=== PATIENT | male | born 1965 | race African-American/Black ===

== ENCOUNTER 2022-07-31 21:38 | Emergency (ER) | payer OTHER ==
[2022-07-31 22:44] LABS: Mean Corpuscular HGB CONC 34.5 g/dL (32.0-36.0); Mean Corpuscular Hemoglobin 29.2 pg (27.0-33.0); Mean Corpuscular Volume 84.8 fl (81.2-95.1); Mean Platelet Volume 9.4 fl (7.4-10.4); Platelet Count 133 10x3/uL (150-450); RBC Distribution Width 12.6 % (11.5-14.5); Red Blood Cell (RBC) Count 4.79 10x6/uL (4.32-5.72); White Blood Cell (WBC) Count 5.5 10x3/uL (3.5-10.5)
[2022-07-31 22:45] LABS: #Eosinphils 0.1 10x3/uL (0.0-0.5); #Monocytes 0.5 10x3/uL (0.0-1.1); #Neutrophils 3.5 10x3/uL (1.5-8.4); %Basophils 0.5 % (0.0-2.0); %Eosinophils 1.1 % (0.0-6.0); %Lymphocytes 27.3 % (18.0-47.0); %Monocytes 8.5 % (0.0-10.0); %Neutrophils 62.2 % (40.0-75.0)
[2022-07-31 22:58] LABS: ALT (SGPT) 28 U/L (8-55); AST (SGOT) 25 U/L (5-34); Albumin 3.8 g/dL (3.5-5.0); Alkaline Phosphatase 81 U/L (40-110); Anion Gap 11 mmol/L (10-20); BUN (Urea Nitrogen) 12 mg/dL (8.4-25.7); Bilirubin, Total 0.4 mg/dL (0.2-1.2); Calc. Creatinine Clearance 0 mL/min (70-130); Calcium 8.7 mg/dL (7.8-10.44); Carbon Dioxide 23 mmol/L (22-29); Chloride 111 mmol/L (98-107); Estimated GFR 103; Globulin 2.7 g/dL (2.4-3.5); Glucose 102 mg/dL (70-105); Potassium 4.3 mmol/L (3.5-5.1); Protein, Total 6.5 g/dL (6.0-8.3); Sodium 141 mmol/L (136-145)
[2022-07-31 23:58] LABS: SARS-CoV-2 NAA Rapid Test Not Detected (NotDetected)
== END 2022-08-01 02:27 | disposition short-term general hospital (02) ==
LOC: CSHERS 21:38
DX: R07.89 Other chest pain (principal); R00.2 Palpitations; I48.91 Unspecified atrial fibrillation; I25.10 Atherosclerotic heart disease of native coronary artery without angina pectoris; E78.5 Hyperlipidemia, unspecified; I10 Essential (primary) hypertension; Z20.822 Contact with and (suspected) exposure to COVID-19; Z79.899 Other long term (current) drug therapy
CPT/HCPCS: 71045; 80053; 84484; 85025; 85379; 93005; U0002

== ENCOUNTER 2022-11-02 18:49 | Observation (INO) | payer OTHER ==
[2022-11-02 19:04] VITALS: BMI 28.9
[2022-11-02] MEDS ORDERED: Calcium Carbonate 500 MG ChewTAB PO PRN (19:25)
[2022-11-02] MEDS ORDERED: HYDROcodone/Acetaminophen 5/325 mg Tablet PO PRN (19:25)
[2022-11-02] MEDS ORDERED: Ondansetron PF 4 MG/2 ML Vial IVP PRN (19:25)
[2022-11-02] MEDS ORDERED: Acetaminophen 325 MG TAB PO PRN (19:25)
[2022-11-02] MEDS ORDERED: Guaifenesin DM 100-10/5 ML UDCUP PO PRN (19:25)
[2022-11-02] MEDS ORDERED: Senokot S 8.6-50 MG TAB PO PRN (19:25)
[2022-11-02] MEDS ORDERED: Lactated Ringer's 500 ML IV SCH (19:30)
[2022-11-02] MEDS ORDERED: Potassium Chloride 20 MEQ TAB PO SCH ×2 (19:30→22:00)
[2022-11-02] MEDS ORDERED: Magnesium Sulfate/D5W 1 GM/100 ML BAG IVPB SCH (19:30)
[2022-11-02] MEDS ORDERED: Morphine 2 MG/ML VIAL SLOW IVP PRN (19:37)
[2022-11-02] MEDS: Metoprolol Tartrate 50 MG TAB PO SCH (22:27)
[2022-11-02] MEDS: Simvastatin 10 MG TAB PO SCH (22:27)
[2022-11-02] MEDS: Terazosin HCl 5 MG CAP PO SCH (22:27)
[2022-11-03] MEDS ORDERED: Potassium Chloride 20 MEQ TAB PO SCH (01:00)
[2022-11-03 05:14] LABS: Anion Gap 11 mmol/L (10-20); BUN (Urea Nitrogen) 15 mg/dL (8.4-25.7); Calc. Creatinine Clearance 128 mL/min (70-130); Calcium 8.5 mg/dL (7.8-10.44); Carbon Dioxide 24 mmol/L (22-29); Chloride 110 mmol/L (98-107); Estimated GFR 104; Glucose 102 mg/dL (70-105); Magnesium 2.1 mg/dL (1.6-2.6); Potassium 4.7 mmol/L (3.5-5.1); Sodium 140 mmol/L (136-145)
[2022-11-03] MEDS: Metoprolol Tartrate 50 MG TAB PO SCH ×2 (09:23→20:43)
[2022-11-03] MEDS: Aspirin 81 mg Enteric Coated Tablet PO SCH (09:23)
[2022-11-03] MEDS: Terazosin HCl 5 MG CAP PO SCH (20:43)
[2022-11-03] MEDS: Simvastatin 10 MG TAB PO SCH (20:43)
[2022-11-04 04:08] LABS: Anion Gap 10 mmol/L (10-20); BUN (Urea Nitrogen) 12 mg/dL (8.4-25.7); Calc. Creatinine Clearance 128 mL/min (70-130); Calcium 8.8 mg/dL (7.8-10.44); Carbon Dioxide 25 mmol/L (22-29); Chloride 105 mmol/L (98-107); Estimated GFR 104; Glucose 107 mg/dL (70-105); Potassium 4.2 mmol/L (3.5-5.1); Sodium 136 mmol/L (136-145)
[2022-11-04] MEDS: Metoprolol Tartrate 50 MG TAB PO SCH (09:31)
[2022-11-04] MEDS: Aspirin 81 mg Enteric Coated Tablet PO SCH (09:32)
[2022-11-04 17:04] VITALS: BP 109/77; TEMP 98.1
== END 2022-11-04 19:20 | disposition home or self-care (01) ==
LOC: INTOOBSV 18:49 → CSHTELE 18:49 → EEVIPCON 18:49 → OBSVTOIN 19:25 → INTOOBSV 19:25
PROVIDERS: ADMIT Internal Medicine; ATTEND Internal Medicine
DX: R00.2 Palpitations (principal); R07.9 Chest pain, unspecified; R06.02 Shortness of breath; R42 Dizziness and giddiness; G47.33 Obstructive sleep apnea (adult) (pediatric); I47.1 Supraventricular tachycardia; I48.91 Unspecified atrial fibrillation; N40.0 Benign prostatic hyperplasia without lower urinary tract symptoms; K21.9 Gastro-esophageal reflux disease without esophagitis; I48.92 Unspecified atrial flutter; E78.5 Hyperlipidemia, unspecified; N25.89 Other disorders resulting from impaired renal tubular function; F12.90 Cannabis use, unspecified, uncomplicated; F17.200 Nicotine dependence, unspecified, uncomplicated; Z88.0 Allergy status to penicillin; Z79.82 Long term (current) use of aspirin; Z79.899 Other long term (current) drug therapy
CPT/HCPCS: 36415; 80048; 83735; 84443; 84484; 85379; 94660; 94760; 94762; 96372; 96374; G0378; J1650; J3475; J7120

== ENCOUNTER 2023-01-14 13:26 | Emergency (ER) | payer OTHER ==
[2023-01-14 14:12] LABS: #Monocytes 0.5 10x3/uL (0.0-1.1); %Basophils 0.6 % (0.0-2.0); %Eosinophils 0.6 % (0.0-6.0); %Lymphocytes 17.9 % (18.0-47.0); %Monocytes 7.6 % (0.0-10.0); %Neutrophils 72.9 % (40.0-75.0); Mean Corpuscular HGB CONC 34.9 g/dL (32.0-36.0); Mean Corpuscular Hemoglobin 28.7 pg (27.0-33.0); Mean Corpuscular Volume 82.2 fl (81.2-95.1); Mean Platelet Volume 9.5 fl (7.4-10.4); Platelet Count 146 10x3/uL (150-450); RBC Distribution Width 12.2 % (11.5-14.5); Red Blood Cell (RBC) Count 5.23 10x6/uL (4.32-5.72); White Blood Cell (WBC) Count 6.8 10x3/uL (3.5-10.5)
[2023-01-14] MEDS ORDERED: Magnesium 2 GM/50 ML BAG (IN WATER) ONE (14:31)
[2023-01-14] MEDS ORDERED: Digoxin 0.5 MG/2 ML AMP ONE (14:31)
[2023-01-14] MEDS ORDERED: Aspirin Chewable 81 MG TAB ONE (14:33)
[2023-01-14 14:34] LABS: ALT (SGPT) 22 U/L (8-55); AST (SGOT) 20 U/L (5-34); Albumin 3.9 g/dL (3.5-5.0); Alkaline Phosphatase 85 U/L (40-110); Anion Gap 15 mmol/L (10-20); BUN (Urea Nitrogen) 20 mg/dL (8.4-25.7); Bilirubin, Total 0.4 mg/dL (0.2-1.2); Calc. Creatinine Clearance 0 mL/min (70-130); Calcium 8.7 mg/dL (7.8-10.44); Carbon Dioxide 21 mmol/L (22-29); Chloride 109 mmol/L (98-107); Estimated GFR 80; Globulin 2.7 g/dL (2.4-3.5); Glucose 96 mg/dL (70-105); Lipase 38 U/L (8-78); Potassium 4.1 mmol/L (3.5-5.1); Protein, Total 6.6 g/dL (6.0-8.3); Sodium 141 mmol/L (136-145)
[2023-01-14 14:37] LABS: PTT 40.2 sec (22.0-33.0); Prothrombin Time 52.7 sec (9.5-12.1)
[2023-01-14 14:38] LABS: Troponin I Less than 0.010 ng/mL (< 0.028)
[2023-01-14 16:02] LABS: SARS-CoV-2 NAA Rapid Test Not Detected (NotDetected)
== END 2023-01-14 21:30 | disposition short-term general hospital (02) ==
LOC: CSHERS 13:26
DX: R07.9 Chest pain, unspecified (principal); R00.0 Tachycardia, unspecified; I25.10 Atherosclerotic heart disease of native coronary artery without angina pectoris; E78.5 Hyperlipidemia, unspecified; I10 Essential (primary) hypertension; E66.9 Obesity, unspecified; Z79.899 Other long term (current) drug therapy; Z79.82 Long term (current) use of aspirin; Z79.01 Long term (current) use of anticoagulants; Z20.822 Contact with and (suspected) exposure to COVID-19
CPT/HCPCS: 71045; 80053; 83690; 83880; 84484; 85025; 85610; 85730; 93005; 96365; 96375; J1160; J3475; U0002

== ENCOUNTER 2023-06-27 22:48 | Emergency (ER) | payer OTHER ==
[2023-06-27 23:23] LABS: #Monocytes 0.5 10x3/uL (0.0-1.1); #Neutrophils 4.5 10x3/uL (1.5-8.4); %Basophils 0.7 % (0.0-2.0); %Eosinophils 0.2 % (0.0-6.0); %Lymphocytes 16.8 % (18.0-47.0); %Monocytes 7.9 % (0.0-10.0); %Neutrophils 74.1 % (40.0-75.0); Hematocrit 40.1 % (38.8-50.0); Hemoglobin 14.3 g/dL (13.5-17.5); Mean Corpuscular HGB CONC 35.7 g/dL (32.0-36.0); Mean Corpuscular Hemoglobin 29.8 pg (27.0-33.0); Mean Corpuscular Volume 83.5 fl (81.2-95.1); Mean Platelet Volume 9.2 fl (7.4-10.4); Platelet Count 137 10x3/uL (150-450); RBC Distribution Width 12.2 % (11.5-14.5); White Blood Cell (WBC) Count 6.1 10x3/uL (3.5-10.5)
[2023-06-27 23:38] LABS: ALT (SGPT) 22 U/L (8-55); AST (SGOT) 18 U/L (5-34); Albumin 3.7 g/dL (3.5-5.0); Alkaline Phosphatase 73 U/L (40-110); Anion Gap 14 mmol/L (10-20); BUN (Urea Nitrogen) 15 mg/dL (8.4-25.7); Bilirubin, Total 0.5 mg/dL (0.2-1.2); Calc. Creatinine Clearance 0 mL/min (70-130); Calcium 8.5 mg/dL (7.8-10.44); Carbon Dioxide 19 mmol/L (22-29); Chloride 110 mmol/L (98-107); Estimated GFR 102; Globulin 2.6 g/dL (2.4-3.5); Glucose 150 mg/dL (70-105); Potassium 3.5 mmol/L (3.5-5.1); Protein, Total 6.3 g/dL (6.0-8.3); Sodium 139 mmol/L (136-145)
[2023-06-27 23:48] LABS: Troponin I Less than 0.010 ng/mL (< 0.028)
[2023-06-28 02:14] LABS: Troponin I Less than 0.010 ng/mL (< 0.028)
[2023-06-28] MEDS ORDERED: Acetaminophen 500 MG TAB ONE (03:52)
== END 2023-06-28 04:00 ==
LOC: CSHERS 22:48
DX: R07.2 Precordial pain (principal); K21.9 Gastro-esophageal reflux disease without esophagitis; I10 Essential (primary) hypertension; I48.91 Unspecified atrial fibrillation; E78.5 Hyperlipidemia, unspecified; Z79.82 Long term (current) use of aspirin; Z79.899 Other long term (current) drug therapy
CPT/HCPCS: 36415; 71045; 80053; 84484; 85025; 93005